=== PATIENT | male | born 1975 | race Two or more races ===

== ENCOUNTER 2022-12-31 09:54 | Emergency (ER) | payer BC ==
[~2022-12-31] VITALS: Ht 180.3 cm; Wt 83.9 kg
--- NOTE | 2022-12-31 09:54 | NUR ---
BIBS FOR TESTICLE PAIN. A/O X 3, ABLE TO MAKE NEEDS KNOWN. TOLERATING WELL ON ROOM AIR.
[2022-12-31] MEDS ORDERED: DOXYCYCLINE HYCLATE (100 MG) 100 MG TABLET PO ONE (10:30)
[2022-12-31] MEDS ORDERED: GENTAMICIN 80 MG/2 ML VIAL IM ONE (10:30)
[2022-12-31] MEDS ORDERED: AZITHROMYCIN 250 MG TABLET PO ONE (10:30)
--- NOTE | 2022-12-31 10:34 | NUR ---
urine specimen collected. 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
[2022-12-31] MEDS ORDERED: AZITHROMYCIN 500 MG VIAL ONE (10:40)
[2022-12-31] MEDS ORDERED: DOXYCYCLINE HYCLATE (100 MG) 100 MG TABLET ONE (10:41)
[2022-12-31 11:32] LABS: BILIRUBIN,URINE NEGATIVE (NEGATIVE); COLOR,URINE YELLOW (YELLOW); LEUKOCYTE ESTERASE ,URINE NEGATIVE (NEGATIVE); NITRITE, URINE NEGATIVE (NEGATIVE); PH,URINE 6.5 (5.0-8.0); PROTEIN,URINE NEGATIVE (NEGATIVE); UGLUCOSE NEGATIVE (NEGATIVE); UROBILINOGEN,URINE 0.2 EU/dL (0.2)
--- NOTE | 2022-12-31 11:40 | NUR ---
U/S TECH AT BEDSIDE
[2022-12-31] MEDS ORDERED: DOXY-326 PO (12:40)
[2022-12-31] MEDS ORDERED: ACET-73 PO (12:40)
--- NOTE | 2022-12-31 13:10 | NUR ---
Patient discharged to home in stable condition. Written and verbal after care instructions given. Patient verbalizes understanding of instruction.
[2022-12-31 13:11] VITALS: BP 135/79
--- NOTE | 2023-01-09 10:23 | NUR ---
On 12/31/22, gentamycin 80 mg/ 2 mL was given intramuscularly without incident
== END 2022-12-31 13:10 | disposition home or self-care (01) ==
LOC: ER 10:06
DX: N45.3 Epididymo-orchitis (principal); N43.3 Hydrocele, unspecified; N50.89 Other specified disorders of the male genital organs; Z88.8 Allergy status to other drugs, medicaments and biological substances
CPT/HCPCS: 99285; 86592; 86593; 96372; 76870; 81003; 36415; 87529; 87806; 87491; 87591; J1580; J0456